=== PATIENT | male | born 1975 | race Caucasian/White ===

== ENCOUNTER 2016-10-01 06:45 | Emergency (ER) | payer SELFPAY ==
[~2016-10-01] VITALS: Ht 172.7 cm; Wt 81.6 kg
[2016-10-01 06:51] VITALS: BP 141/80
== END 2016-10-01 07:50 | disposition left against medical advice (07) ==
LOC: ER 06:45 → EDBD 06:45 → ER 07:50
DX: R10.84 Generalized abdominal pain (principal); Z53.21 Procedure and treatment not carried out due to patient leaving prior to being seen by health care provider